=== PATIENT | female | born 1980 | race Two or more races ===

== ENCOUNTER 2016-11-20 19:09 | Emergency (ER) | payer SELFPAY ==
--- NOTE | ~2016-11-20 | ER ---
PATIENT'S NAME: ENRIQUE BALL [facility] AGE: 36 Y [address] ROOM: [place] [address] LOCATION: [facility] ADMIT DATE: 11/20/2016 ER/Outpatient Report DISCHARGE DATE: 11/20/2016 FAMILY PHYSICIAN: Physician, Unknown ATTENDING PHYSICIAN: Brian Wolff TIME: The patient was seen at about 1935. HISTORY OF PRESENT ILLNESS: The patient is a 36-year-old female, who is traveling with her family and back to [place], which is their home. The patient presented complaining of low back pain; pain radiates down her leg. She has also had some symptoms of some frequency and urgency of urination. The patient denies any fever, chills, or vomiting. The information was obtained through the [employer]. The patient speaks Albanian. The patient also denied any recent injuries or previous back problems. MEDICAL HISTORY: The patient gives no history of any chronic diseases. ALLERGIES: NONE. HOME MEDICATIONS: None. SOCIAL HISTORY: She is and has children. She does not smoke or use alcohol. REVIEW OF SYSTEMS: GENERAL: No report of any fever or chills. HEAD AND ENT: She denies any headaches or neck pain. RESPIRATORY: No shortness of breath or cough. CARDIOVASCULAR: No chest pain. GASTROINTESTINAL: No vomiting or diarrhea. GENITOURINARY: She has had some burning frequency of urination. MUSCULOSKELETAL: Low back pain bilaterally with radiation down her left leg. NEUROLOGICAL: No numbness or tingling to her extremities. PHYSICAL EXAMINATION: VITAL SIGNS: Her blood pressure was 123/66, temperature was 97.9, respiratory rate was 16, pulse was 76, and O2 saturations were 98% on room air. GENERAL APPEARANCE: She is non-Spanish speaking, but appears well nourished and cooperative. [facility] 36 [facility] [address] ROOM: [place] [address] LOCATION: [facility] ADMIT DATE: 11/20/2016 ER/Outpatient Report DISCHARGE DATE: 11/20/2016 FAMILY PHYSICIAN: Physician, Unknown ATTENDING PHYSICIAN: Brian Wolff HEENT: Head: Normocephalic. Eyes: PERRLA. No icterus. Nose: Septum was midline. Mouth: Teeth in good repair. Buccal membranes were moist. LUNGS: Clear. HEART: Regular rhythm. ABDOMEN: Soft and nontender. BACK: Movements appeared unlabored. She had some mild tenderness across the paralumbar muscle groups bilaterally. NEUROLOGICAL: Light touch appeared normal bilaterally in both lower extremities. Reflexes appeared equal and symmetrical. LABORATORY WORK AND DIAGNOSTIC IMAGING: Her urine did show positive leukocytes; however, on micro, there were only 0 to 2 white cells, but there were moderate bacteria. CBC and her CMS were unremarkable. D-dimer also was less than 0.19. ASSESSMENT AND PLAN: 1. Urinary tract infection. Treatment will be with Macrobid one b.i.d. for 5 days. 2. Low back pain with possible sciatica on left side. Treatment with Naprosyn 500 b.i.d. and Flexeril 5 mg t.i.d. Recommended the use of ice. Follow up with her health provider when they return home to [place]. Recommended she take frequent breaks while traveling. Encouraged fluids. LUIS CARLOS RAMÍREZ FOR MD SILVIA DELGADILLO/mike /[id number] d: 11/21/16 0402 t: 11/28/16 1233, OUTPATIENT REPORT
[2016-11-20 19:53] LABS: BILIRUBIN URINE NEGATIVE (NEGATIVE); BLOOD URINE NEGATIVE /UL (NEGATIVE); COLOR URINE YELLOW (YELLOW); GLUCOSE URINE NEGATIVE (NEGATIVE); KETONE URINE NEGATIVE (NEGATIVE); LEUKOCYTES URINE 25 /UL (NEGATIVE); NITRITE URINE NEGATIVE (NEGATIVE); PROTEIN URINE NEGATIVE (NEGATIVE); SPEC GRAVITY URINE 1.025 (1.003-1.035); TURBIDITY URINE CLEAR (CLEAR); UROBILINOGEN URINE NORMAL (NORMAL)
[2016-11-20 19:58] LABS: BACTERIA URINE MODERATE (NEGATIVE); EPITHELIAL URINE RARE #/HPF (NEGATIVE); RBC URINE NEGATIVE #/HPF (NEGATIVE)
[2016-11-20 20:01] LABS: BASOPHIL # 0.1 K/uL (0.0-0.2); BASOPHIL % 1.2 %; EOSINOPHIL # 0.3 K/uL (0.0-0.5); HEMATOCRIT 40.2 % (33.0-46.0); IMMATURE GRANULOCYTE % 0.1 %; LYMPHOCYTE # 3.1 K/uL (0.8-4.0); LYMPHOCYTE % 36.3 %; MCH 31.5 pg (27.0-34.0); MCHC 34.8 gm/dL (32.0-36.5); MCV 90.3 fl (83.0-98.0); MONOCYTE # 0.4 K/uL (0.0-1.0); MONOCYTE % 4.6 %; MPV 9.9 fl (9.4-12.4); NEUTROPHIL # (ANC) 4.6 K/uL (1.8-7.8); NEUTROPHIL % 53.8 %; NRBC % 0 /100WBC (0-0.00); PLATELET COUNT 299 K/uL (150-450); RBC 4.45 M/uL (3.50-5.50); RDW-CV 12.4 % (11.9-14.6); WBC 8.5 K/uL (4.0-11.0)
[2016-11-20 20:21] LABS: ALBUMIN 3.9 gm/dL (3.5-5.0); ALK PHOS 77 IU/L (33-138); ALT 21 IU/L (12-78); ANION GAP 12.2 (10.0-19.0); AST 17 IU/L (10-40); BLOOD UREA NITROGEN 27 mg/dL (6-24); CALCIUM 8.5 mg/dL (8.5-10.5); CHLORIDE 109 mMol/L (96-110); CO2 24 mMol/L (22-32); CREATININE 0.8 mg/dL (0.5-1.1); POTASSIUM 4.2 mMol/L (3.7-5.1); SODIUM 141 mMol/L (135-145); TOTAL BILIRUBIN 0.2 mg/dL (0.0-1.5); TOTAL PROTEIN 7.4 g/dL (6.0-8.4)
== END 2016-11-20 20:46 | disposition disaster alternative care site (69) ==
LOC: GMED 19:09
PROVIDERS: Emergency Medicine
DX: N39.0 Urinary tract infection, site not specified (principal)
CPT/HCPCS: J1885